=== PATIENT | male | born 1985 | race Caucasian/White ===

== ENCOUNTER 2017-03-02 20:19 | Emergency (ER) | payer OTHER ==
[2017-03-02 21:19] LABS: PH,URINE 6.5 (5.0-8.0); SPECIFIC GRAVITY 1.015 (1.001-1.030); URINE BILIRUBIN NEGATIVE (NEGATIVE); URINE BLOOD NEGATIVE (NEGATIVE); URINE GLUCOSE (UA) NEGATIVE (NEGATIVE); URINE LEUKOCYTE ESTERASE NEGATIVE (NEGATIVE); URINE NITRITE NEGATIVE (NEGATIVE); URINE PROTEIN NEGATIVE (NEGATIVE); URINE UROBILINOGEN NORMAL (0-1 mg/dl)
[2017-03-02 21:26] LABS: URINE APPEARANCE CLEAR; URINE COLOR YELLOW
== END 2017-03-02 22:42 | disposition home or self-care (01) ==
LOC: ED 20:19
DX: M54.5 Low back pain (principal); Z53.21 Procedure and treatment not carried out due to patient leaving prior to being seen by health care provider